=== PATIENT | female | born 1995 | race Caucasian/White ===

== ENCOUNTER 2018-02-15 09:03 | Emergency (ER) | payer OTHER ==
[~2018-02-15] VITALS: Ht 157.5 cm; Wt 81.7 kg
--- NOTE | ~2018-02-15 | EKG ---
[address] [address] ELECTROCARDIOGRAM REPORT Name: CATHRYN SUGGS [id number] Admission: 02/15/18 Attend Phys: Discharge: Date of : [birth year] Report #: [id number] THIS REPORT FOR: //name// [facility] ED Test Date: 2018-02-15 Test Time: 09:36:15 Pat Name: CATHRYN SUGGS Department: Room: Gender: F [employer] Supervisor: 10 : 1995 Requested By: Rubens García Order Number: [id number] MD: Kev Tafoya Measurements Intervals [place] Rate: 88 P: 50 AK: 121 QRS: 15 QRSD: 80 T: 23 QT: 367 QTc: 444 Interpretive Statements Sinus rhythm No previous ECG available for comparison Electronically Signed On 02-15-2018 10:27:46 CDT by Kev Tafoya [email or web address] <ELECTRONICALLY SIGNED> By: Kev Tafoya MD 02/15/18 1027 0936 0936 Kev [email or web address] MD /EPI
[2018-02-15 09:50] LABS: ABSOLUTE NEUTROPHILS 7.2 thou/uL (1.4-8.2); BASOPHILS 0.4 % (0.0-2.0); EOSINOPHILS 0.6 % (0.0-3.0); HEMATOCRIT 38.9 % (37.0-47.0); HEMOGLOBIN 13.5 gm/dL (12.0-15.0); LYMPHOCYTES 19.4 % (24.0-44.0); MCH 31.6 pg (26.0-34.0); MCHC 34.7 g/dL (28.0-37.0); MCV 91.1 fL (80.0-100.0); MONOCYTES 6.3 % (1.0-8.0); PLATELET COUNT 186 thou/uL (150-400); POLYS 73.3 % (36.0-66.0); RBC 4.26 mil/uL (4.20-5.00); RDW 12.5 % (10.5-14.5); WBC 9.8 thou/uL (4.0-11.0)
[2018-02-15] MEDS ORDERED: ACYCLOVIR 400400 MG PO (10:04)
[2018-02-15 10:06] LABS: ANION GAP 11 mmol/L (7-16); BUN 5 mg/dL (7-18); CALCIUM 9.9 mg/dL (8.5-10.1); CHLORIDE 103 mmol/L (98-107); CO2 22 mmol/L (21-32); CREATININE 0.5 mg/dL (0.6-1.0); GLUCOSE 89 mg/dL (74-106); POTASSIUM 3.9 mmol/L (3.5-5.1); SODIUM 136 mmol/L (136-145)
[2018-02-15 10:14] LABS: URINE BILIRUBIN NEGATIVE (Negative); URINE BLOOD NEGATIVE (Negative); URINE CLARITY CLEAR; URINE COLOR YELLOW; URINE GLUCOSE-RANDOM* NEGATIVE (Negative); URINE KETONES NEGATIVE (Negative); URINE LEUKOCYTES-REFLEX NEGATIVE (Negative); URINE NITRITE-REFLEX NEGATIVE (Negative); URINE PROTEIN (DIPSTICK) NEGATIVE (Negative); URINE SPECIFIC GRAVITY >= 1.030 (1.005-1.035); URINE UROBILINOGEN 0.2 E.U./dl (0.2-1.0)
[2018-02-15 10:15] LABS: ALBUMIN 3.3 g/dL (3.4-5.0); LIPASE 147 U/L (73-393); SGOT 17 U/L (15-37); SGPT 32 U/L (30-65); TOTAL BILIRUBIN 0.2 mg/dL (<0.1-1.0); TOTAL PROTEIN 7.8 g/dL (6.4-8.2); TROPONIN-I <0.06 ng/mL (<0.06)
[2018-02-15] MEDS ORDERED: REGLAN 10 MG TA10 MG PO (11:26)
[2018-02-15 11:47] VITALS: BP 105/62
== END 2018-02-15 11:48 | disposition home or self-care (01) ==
LOC: ER 09:03
PROVIDERS: Physician Assistant
DX: O26.892 Other specified pregnancy related conditions, second trimester (principal); Z3A.16 16 weeks gestation of pregnancy; R55 Syncope and collapse; R11.2 Nausea with vomiting, unspecified; R10.32 Left lower quadrant pain; Z88.8 Allergy status to other drugs, medicaments and biological substances